=== PATIENT | female | born 1980 | race Two or more races ===

== ENCOUNTER 2020-04-10 05:10 | Day surgery (SDC) | payer OTHER ==
--- NOTE | 2020-04-09 13:42 | Pre-Procedure Note/Attestation ---
Pre-Procedure Note/Attestation Complete Prior to Procedure Planned Procedure: left Procedure Narrative: left shoulder scope, sad, pricila mishra Indications for Procedure Pre-Operative Diagnosis: left shoulder impingement Attestation I attest that I discussed the nature of the procedure; its benefits; risks and complications; and alternatives (and the risks and benefits of such alternatives ), prior to the procedure, with the patient (or the patient's legal advertising sales representative). I attest that, if there was a reasonable possibility of needing a blood transfusion, the patient (or the patient's legal advertising sales representative) was given the [facility] standardized written summary, pursuant to the [place] Blood Safety Act ([place] Health and Safety Code # 1645, as amended). I attest that I re-evaluated the patient just prior to the surgery and that there has been no change in the patient's H&P, except as documented below: NONE Ermias Cruz MD Apr 09, 2020 13:42
[2020-04-10] VITALS (8 sets, daily range): BP systolic 106–134; BP diastolic 78–89
[~2020-04-10] VITALS: Ht 157.5 cm; Wt 60.3 kg
[2020-04-10] MEDS ORDERED: ceFAZolin 1gm IVPB IVPB ONE ×2 (06:00)
[2020-04-10] MEDS ORDERED: oxyCONTIN 10mg tab ORAL ONE (06:00)
[2020-04-10] MEDS ORDERED: celeBREX 200mg Cap **SURGERY PATIENTS ONLY ORAL ONE (06:00)
[2020-04-10] MEDS ORDERED: TOPIRAMATE100 MG ORAL (06:06)
[2020-04-10] MEDS ORDERED: VENTOLIN HFA18 GM INH (06:06)
[2020-04-10] MEDS ORDERED: fentaNYL 100 mcg/2 mL IV ONE (06:28)
[2020-04-10] MEDS ORDERED: Midazolam 2mg/2ml Inj ONE (06:28)
[2020-04-10] MEDS ORDERED: Lidocaine 1% MPF 10mg/ml 5ml ONE (06:32)
--- NOTE | 2020-04-10 06:52 | Anethesia Preoperative Eval ---
Anesthesia Pre-op PMH/ROS General Date of Evaluation: Apr 10, 2020 Time of Evaluation: 06:51 Anesthesiologist: Kaylee ASA Score: ASA 2 Mallampati Score Class I : Soft palate, uvula, fauces, pillars visible Class II: Soft palate, uvula, fauces visible Class III: Soft palate, base of uvula visible Class IV: Only hard plate visible Mallampati Classification: Class II Surgeon: Nancy Diagnosis: L shoulder pain Surgical Procedure: L shoule scope Anesthesia History: none Family History: no anesthesia problems Allergies: Coded Allergies: Pork (Verified Allergy, Severe, HIVES, 04/10/20) Whole Milk (Verified Allergy, Severe, HIVES, 04/10/20) Medications: see eMAR Patient NPO?: Yes Past Medical History Cardiovascular: Denies: HTN, CAD, SC, valve dz, arrhythmia, other Pulmonary: Denies: asthma, COPD, JOSE, other Gastrointestinal/Genitourinary: Reports: GERD - mild; Denies: CRI, ESRD, other Neurologic/Psychiatric: Reports: depression/anxiety, other - migrae headache; Denies: dementia, CVA, TIA Endocrine: Denies: DM, hypothyroidism, steroids, other HEENT: Denies: cataract (L), cataract (R), glaucoma, [place] (L), [place] (R), other Hematology/Immune: Denies: anemia, DVT, bleeding disorder, other Musculoskeletal/Integumentary: Denies: OA, RA, DJD, DDD, edema, other PMH Narrative: as above PSxH Narrative: hysterectomy Anesthesia Pre-op Phys. Exam Physician Exam Last Vital Signs Date Time Temp Pulse Resp B/P (MAP) Pulse Ox O2 Delivery O2 Flow Rate FiO2 04/10/20 06:39 97.9 81 16 134/89 100 Room Air Constitutional: NAD Neurologic: CN 2-12 intact Cardiovascular: RRR, no M/R/G Respiratory: CTA Gastrointestinal: S/NT/ND Airway Exam Mallampati Score: Class II MO: full Neck: flexible ROM: full Teeth: intact Dentures: no upper, no lower Anesthesia Pre-op A/P Labs see chart Studies Pre-op Studies: EKG - NSR Risk Assessment & Plan Assessment: ASA 2 Plan: GA with LMA brachial plexus block fr postop pain control Status Change Before Surgery: No Pre-Antibiotics Drug: Ancef 1gr Given Within 1 Hr of Incision: Yes Time Given: 07:32 Patrick Page MD Apr 10, 2020 06:52
[2020-04-10] MEDS ORDERED: Tylenol #3 tab (300mg/30mg) ORAL PRN (07:00)
[2020-04-10] MEDS ORDERED: LR 1000ml ONE (07:00)
[2020-04-10] MEDS ORDERED: Sterile Water Irrig 1000ml IRRIG ONE (07:00)
[2020-04-10] MEDS ORDERED: HYDROmorphone 1mg/ml Carpuject SUBQ PRN (07:00)
[2020-04-10] MEDS ORDERED: D5 1/2NS 1,000 ML IV SCH (07:00)
[2020-04-10] MEDS ORDERED: NS Irrig 4000ml IRRIG ONE (07:00)
[2020-04-10] MEDS ORDERED: HYDROcodone/Acetamin 5/325 tab ORAL PRN (07:00)
[2020-04-10] MEDS ORDERED: NS Irrig 2000ml IRRIG ONE (07:00)
[2020-04-10] MEDS ORDERED: Ketorolac 30mg Inj ONE (07:41)
[2020-04-10] MEDS ORDERED: LR 1000ml 1,000 ML IVLG SCH (07:47)
[2020-04-10] MEDS ORDERED: Midazolam 2mg/2ml Inj IVP PRN (08:00)
[2020-04-10] MEDS ORDERED: Ketorolac 30mg Inj IV PRN (08:00)
[2020-04-10] MEDS ORDERED: Meperidine 25mg/0.5ml Inj (FOR RIGORS ONLY) IV PRN (08:00)
[2020-04-10] MEDS ORDERED: Metoclopramide 10mg/2ml Inj IVP PRN (08:00)
[2020-04-10] MEDS ORDERED: DiphenhydrAMINE 50mg/ml Inj IVP PRN (08:00)
--- NOTE | 2020-04-10 09:05 | Brief Operative Note ---
Immediate Post Operative Note Operative Note Chief Complaint: left shoulder pain Pre-op Diagnosis: left shoulder impingement Procedure: left shoulder scope, rikki, pricila tad Post-op Diagnosis: same as pre-op Findings: consistent w/pre-op dx studies Surgeon: md jordan Information Technology Director: wes daley Anesthesiologist: md danielle Specimen: none Complications: none Condition: stable Fluids: ns Estimated Blood Loss: minimal Drains: none Implant(s) used?: No Erimas Cruz MD Apr 10, 2020 09:05
--- NOTE | 2020-04-10 09:13 | Immediate Post-Op Evaluation ---
Immediate Post-Op Evalulation Immediate Post-Op Evalulation Procedure: L shoulder arthroscopy, subacromion decompression Date of Evaluation: Apr 10, 2020 Time of Evaluation: 09:12 IV Fluids: 1000 Blood Products: none Estimated Blood Loss: min Urinary Output: none Blood Pressure Systolic: 106 Blood Pressure Diastolic: 54 Pulse Rate: 72 Respiratory Rate: 20 O2 Sat by Pulse Oximetry: 99 Temperature (Fahrenheit): 97.8 Pain Score (1-10): 1 Nausea: No Vomiting: No Complications none Patient Status: reacts, patent, none Hydration Status: adequate Patrick Page MD Apr 10, 2020 09:13
--- NOTE | 2020-04-10 09:53 | 48 Hour Post Anesthesia Eval ---
Post Anesthesia Evaluation Procedure: L shoulder arthroscopy, subacromion decompression Date of Evaluation: Apr 10, 2020 Time of Evaluation: 09:52 Blood Pressure Systolic: 119 0: 68 Pulse Rate: 72 Respiratory Rate: 18 Temperature (Fahrenheit): 97.6 O2 Sat by Pulse Oximetry: 98 Airway: patent Nausea: No Vomiting: No Pain Intensity: 1 Hydration Status: adequate Cardiopulmonary Status: stable Mental Status/LOC: patient returned to baseline Follow-up Care/Observations: n/a Post-Anesthesia Complications: none Follow-up care needed: ready to discharge Patrick Page MD Apr 10, 2020 09:53
--- NOTE | 2020-04-10 10:31 | Operative Note - Dictated ---
DATE OF OPERATION: 04/10/2020 PREOPERATIVE DIAGNOSES: 1. Left shoulder subacromial impingement. 2. Left shoulder bone spur underneath the AC joint. POSTOPERATIVE DIAGNOSES: 1. Left shoulder anterior labral fraying without detachment from glenoid. 2. Left shoulder subacromial bursitis and impingement. 3. Bone spur underneath the AC joint. PROCEDURE: 1. Left shoulder arthroscopy and extensive intra-articular shaving. 2. Left shoulder debridement of the anterior labrum. 3. Left shoulder subacromial bursoscopy, bursectomy and subacromial decompression. 4. Left shoulder mini-Edith procedure (resection of inferior 30% clavicle for coplaning). SURGEON: Ermias Cruz M.D. CHEMICAL TREATMENT OPERATOR: Bertha Blackburn PA-C. Exercise Equipment Repair Technician was present during the actual operative portion of the case and was important and essential part of the operation. During the operation, the speech language assistant held and operated the arthroscopic camera for visualization, assisted by manipulating the arm to help with visualization, and helped with essential parts of the repair process as necessary such as operating surgical instruments under surgeon supervision, suture management, and wound closures. ANESTHESIOLOGIST: Patrick Page MD. ANESTHESIA: General LMA anesthesia combined with interscalene block for postoperative pain management. EBL: Less than 20 mL. COMPLICATIONS: None. SURGICAL INDICATION: The patient is a 40-year-old female, who sustained the above injury to her shoulder. The patient was treated non-operative initially, but this did not alleviate the patients symptoms. Therefore, after discussing all non-surgical and surgical options, and discussing all foreseeable risk and benefits of surgery, the patient opted for surgical treatment as described above. PATIENT POSITIONING: The patient was brought to the operating room table and was placed on the operating room table. All pressure points were well padded. Time out was performed and preop antibiotics were given. General anesthesia was induced and patient was then placed in the lateral decubitus position. All pressure points were well padded again and an axillary roll was placed. Patient shoulder was then prepped and draped in the usual sterile fashion. Time out was performed and the appropriate preoperative antibiotic was given by the anesthesiologist. EXAMINATION OF SHOULDER UNDER ANESTHESIA: The shoulder was examined under anesthesia with all muscles well relaxed. The shoulder was forward flexed, abducted and was placed through full range of external and internal rotation. The anterior, posterior, and inferior stability of the shoulder was checked. The exam revealed no evidence of adhesive capsulitis and no evidence of instability. PORTAL PLACEMENT: The posterior portal was established 2 cm inferior and 1 cm medial to the edge of the posterior acromion. A 1 cm skin incision was made using an eleven blade and using the blunt obturator, the cannula was gently placed through the capsule. The mid-glenoid portal was established just lateral to the coracoid process under direct visualization. Direction of the cannula was first established using a spinal needle, and subsequently, the cannula was placed through the capsule with a blunt obturator. The directional of cannula was first established using a spinal needle, and subsequently, the cannula was placed through the capsule with a blunt obturator. DIAGNOSTIC ARTHROSCOPY: The biceps tendon was probed and pulled through the joint for visualization. It appeared normal. The biceps anchor was palpated with a probe and was visualized. It appeared well attached and there was no evidence of SLAP tear. The posterior labrum and axillary recess was visualized. This was normal and there was no evidence of loose cartilage or fragments in this area. The glenoid articular surface was visualized and it appeared normal. The articular surface of the rotator cuff was visualized and probed next. There was no evidence of articular sided rotator cuff tear extending from the supraspinatus back to the posterior cuff. The Humeral head articular surface was then visualized. There was no evidence of articular cartilage damage. Next the anterior labrum, middle glenohumeral ligament, subscapularis tendon, and the anterior inferior glenohumeral ligament were evaluated. There was evidence of fraying of the anterior labral tearing. The middle glenohumeral ligament had a Rubina complex configuration. Subscapularis was intact. Anterior, inferior glenohumeral ligaments were intact. At this point, the scope was moved to the mid-glenoid portal and the posterior structures including the posterior labrum, posterior capsule and posterior cuff were visualized. These structures were completely normal. The subscapularis recess was devoid of any loose bodies and the anterior capsule was well attached to the humeral neck. The middle and anterior inferior glenohumeral ligament was visualized. These structures were completely normal. OPERATIVE DEBRIDEMENTS AND REPAIR: Care was given to all partial thickness tears and frayed structures in the shoulder joint. The frayed rotator cuff and labrum was debrided using a shaver initially through the anterior portal and subsequently through the posterior portal to complete the debridement. This allowed for smooth debridement of all affected structures and all loose fragments were removed. DIAGNOSTIC BURSOSCOPY AND SUBACROMIAL DECOMPRESSION: The subacromial bursa was entered from the posterior portal. The anterior portal was established under the CA ligament using a switching stick. Subacromial arthroscopy was initiated. There was extensive bursitis and thickened and inflamed bursa tissue present. The CA ligament appeared to be scuffed and frayed. The shaver was placed through the anterior cannula and debridement of the hypertrophic bursa tissue was accomplished. Once visualization was adequate, a lateral portal was established using a blunt trocar in the mid portion of the acromion bone in the anterior-posterior direction and approximately 2 cm lateral to the lateral edge of the acromion. Using combination of shaver and electrocautery the CA ligament was released from the undersurface of the acromion and a complete bursectomy was accomplished. At this point, a subacromial decompression was performed using a dionne initially taking off 5-8 mm of the anterolateral edge of the acromion from the lateral portal and viewing from the posterior portal. Then the lateral border of the undersurface of the acromion was decompressed to the same dept as the anterolateral edge. A posterior trough was then created in the acromion in line with the posterior edge of the clavicle. At this point, the scope was placed in the lateral portal and the subacromial decompression was performed from the posterior portal decompressing the undersurface of the acromion to dept of 5-8 mm. The decompression was performed anterior to the previously marked trough all the way medially to the level of the AC joint. At all times, care was given not to take off too much bone in order to avoid risk of fracture of the acromion. An excellent subacromial decompression was performed in this fashion. At this point, the bursal side of the rotator cuff was examined. All the bursa over the rotator cuff was removed and the rotator cuff was examined with a probe. The arm was placed into external rotation, neutral, and then internal rotation and there was no evidence of tear of the rotator cuff. The scope was then placed in the posterior portal and the subacromial decompression was rechecked to assure there is no area of bone spur that would be still impinging onto the rotator cuff. EVALUATION OF DISTAL CLAVICLE AND DISTAL CLAVICLE RESECTION: Care was given to the distal end of the clavicle. Using electrocautery and kristin, the distal end of the bursa and soft tissue around the distal end of the clavicle was debrided and cleaned. Care was given not to inflict excessive trauma to the ligaments of the AC joint. The distal end of the clavicle appeared to have an inferior osteophyte extending down well bellow the level of the acromion at the level of the AC joint. This appeared to be impinging onto the supraspinatus muscle belly and the musculotendinous junction of the rotator cuff. A mini-Edith procedure was performed by using a dionne to resect the inferior 30% of the distal end of the clavicle. This decompression allowed space for the inferior structures to slide without impingement. This co-planed the inferior edge of the distal clavicle with the inferior edge of the acromion. A full Edith procedure was then performed resecting the distal 1 cm of the clavicle using a dionne. The resection was initially performed from the posterior portal and view from the lateral portal, and it subsequently completed viewing from the posterior portal and resecting through the anterior portal with a dionne to assure adequate and even resection. Care was given not to damage the superior acromioclavicular ligaments or the coracoacromial ligaments. The extend of the resection was measured by measuring the distance between two spinal needles that were placed perpendicularly through the skin at the edge of the acromion and distal clavicle. CONDITION AT DISCHARGE FROM OPERATING ROOM: The skin was re-approximated and sterile dressing and sling were applied. All lap counts and instrument counts were correct. The patient tolerated the procedure well without complications and was taken to the recovery room in stable conditions. Ermias Cruz M.D. DR: LEOLA JOB#: [id number] CC:
== END 2020-04-10 10:50 | disposition home or self-care (01) ==
LOC: SUR 05:10
DX: M75.42 Impingement syndrome of left shoulder (principal); M71.9 Bursopathy, unspecified; M77.9 Enthesopathy, unspecified; K21.9 Gastro-esophageal reflux disease without esophagitis; F32.9 Major depressive disorder, single episode, unspecified; F41.9 Anxiety disorder, unspecified; Z90.710 Acquired absence of both cervix and uterus
CPT/HCPCS: 29823; 29824; 94003; J0690; J1885; J2250; J2405; J2704; J3010; J7120; U0002; 94150